=== PATIENT | female | born 1935 | race Caucasian/White ===

== ENCOUNTER 2024-03-28 11:18 | Emergency (ER) | payer MEDICARE, SELFPAY ==
[2024-03-28 11:26] VITALS: BP 149/81; PULSE 55; TEMP 36.4; O2SAT 99; BMI 38.1
--- NOTE | 2024-03-28 11:36 | ED.FALL1 ---
HPI HPI - Fall General Chief Complaint: Extremity Injury, Lower Stated Complaint: FALL, LOWER RIGHT EXTREMITY Time Seen by Provider: 03/28/24 11:36 Source: patient and family Mode of arrival: walk-in History of Present Illness HPI Narrative: This patient is here for evaluation of pain in her knee. She fell shortly before arrival here. She has had bilateral knee replacements done approximately 20 years ago. She has been doing very well since that time. She has not had any recurring falls. She says today the knee kind of gave out on her and she fell in a precautionary fashion to a carpeted floor. The pain is directly over the right patella area. There is no obvious bleeding or swelling at this time but she is taking blood thinners. She has no pain in the hip, no pain in her lower leg or ankle or foot mortise. She has no pain in her upper extremities head or neck. There is no LOC. Related Data Home Medications ?Medication ?Instructions ?Recorded ?Confirmed apixaban 2.5 mg tablet (Eliquis) 2.5 mg PO BID 03/28/24 03/28/24 calcitriol 0.25 mcg capsule 0.25 mcg PO .3 TIMES PER WEEK 03/28/24 03/28/24 carvedilol 12.5 mg tablet 12.5 mg PO BID 03/28/24 03/28/24 cholecalciferol (vitamin D3) 50 50 mcg PO QAM 03/28/24 03/28/24 mcg (2,000 unit) capsule (Vitamin D3) furosemide 20 mg tablet 20 mg PO DAILY 03/28/24 03/28/24 nifedipine 30 mg tablet,extended 30 mg PO DAILY 03/28/24 03/28/24 release 24 hr vitamin B12 500 mcg-folic acid 400 1 tab PO QAM 03/28/24 03/28/24 mcg tablet Allergies Allergy/AdvReac Type Severity Reaction Status Date / Time Opioids - Morphine Analogues AdvReac Severe Hives Verified 03/28/24 11:37 [id number] Reductase AdvReac Severe Muscle Pain Verified 03/28/24 11:37 Inhibitor Opioid HPI Opioid Management Most Recent Pain and Opioid Data: Last Pain Scale 8 03/28/24 11:50 Exam Narrative Exam Narrative: Awake alert good historian at age88 no evidence of cognitive dysfunction or amnesia. She has no tenderness to palpation of the calvarium head or neck structures. Upper extremities are atraumatic. Both knees have had knee replacement surgery as noted above. There is no hemarthrosis bruises or contusions noted over the right knee. The patella is slightly tender. She does have discomfort with manipulation of the knee but I did not do any stress testing on her. Neurovascular examination lower extremity is normal and there is no tenderness of the bony landmarks of the lower leg at all. Additionally she has no discomfort symptomatically on palpation of the right hip. Constitutional Vital Signs, click to edit/add: Last Vital Signs Temp 97.5 F L 03/28/24 11:26 Pulse 55 L 03/28/24 11:26 Resp 16 03/28/24 11:26 BP 149/81 H 03/28/24 11:26 Pulse Ox 99 03/28/24 11:26 O2 Del Method Room Air 03/28/24 11:26 Course Vital Signs Vital signs: Vital Signs Temperature 97.5 F L 03/28/24 11:26 Pulse Rate 55 L 03/28/24 11:26 Respiratory Rate 16 03/28/24 11:26 Blood Pressure 149/81 H 03/28/24 11:26 Pulse Oximetry 99 03/28/24 11:26 Oxygen Delivery Method Room Air 03/28/24 11:26 Temperature 97.5 F L 03/28/24 11:26 Pulse Rate 55 L 03/28/24 11:26 Respiratory Rate 16 03/28/24 11:26 Blood Pressure 149/81 H 03/28/24 11:26 Pulse Oximetry 99 03/28/24 11:26 Oxygen Delivery Method Room Air 03/28/24 11:26 MDM - Fall MDM Narrative Medical decision making narrative: X-rays were reviewed and show no acute osseous abnormality by the radiologist. We are going to place her on a knee immobilizer ice rest and reevaluation by her orthopedist in 48 to 72 hours Discharge Plan Discharge Stand Alone Forms: Work/School Release, Portal Instructions Chief Complaint: Extremity Injury, Lower Clinical Impression: Contusion of right knee Patient Disposition: Home, Self-Care Time of Disposition Decision: 12:28 Prescriptions / Home Meds: No Action Eliquis 2.5 mg tablet 2.5 mg PO BID calcitriol 0.25 mcg capsule 0.25 mcg PO .3 TIMES PER WEEK Patient Comments: mon, wed, fri carvedilol 12.5 mg tablet 12.5 mg PO BID furosemide 20 mg tablet 20 mg PO DAILY nifedipine 30 mg tablet extended release 24hr 30 mg PO DAILY cholecalciferol (vitamin D3) [Vitamin D3] 50 mcg (2,000 unit) capsule 50 mcg PO QAM vitamin U10-tunbt acid 500-400 mcg tablet 1 tab PO QAM Rx Instructions: administer with a meal Print Language: Norwegian Additional Instructions: Ice for 48 hours/wear splint this week. Repeat evaluation by orthopedist in 3 to 5 days Referrals: Physician,Non-Staff, MD [Primary Care Provider] - 1 week
--- NOTE | 2024-03-28 11:37 | XR_ITS ---
The [address] [address] Patient Name: ELIANE SMITH MRN: [id number] date: 1935 Sex: F Assigned Patient Location: ER Current Patient Location: ER Accession/Order Number: [id number] Exam Date: 03/28/2024 11:48 Report Date: 03/28/2024 12:06 At the request of: JASMEET CHRISTOPHER Procedure: XR knee RT 3V EXAM: XR knee RT 3V HISTORY: Fall COMPARISON: None. TECHNIQUE: 3 views of the right knee FINDINGS: Status post right total knee arthroplasty. No hardware complication. There is no acute fracture or dislocation. The soft tissue is unremarkable. XR/XR knee RT 3V IMPRESSION: No acute process. Electronically authenticated by: GUILLERMO WHEELER Date: 03/28/2024 12:06
== END 2024-03-28 13:13 | disposition home or self-care (01) ==
PROVIDERS: Emergency Provider Emergency Medicine Emergency Medical Services
DX: S80.01XA Contusion of right knee, initial encounter (principal); W18.39XA Other fall on same level, initial encounter; Z96.653 Presence of artificial knee joint, bilateral
CPT/HCPCS: 73562; 99283